=== PATIENT | female | born 1975 | race African-American/Black ===

== ENCOUNTER 2016-11-05 09:23 | Emergency (ER) | payer OTHER ==
[~2016-11-05] VITALS: Ht 160 cm; Wt 84.8 kg
[2016-11-05] MEDS ORDERED: METOPROLOL SUCC50 MG ORAL (09:38)
[2016-11-05] MEDS ORDERED: AMLODIPINE BESY10 MG ORAL (09:38)
[2016-11-05 09:41] VITALS: BP 133/90
[2016-11-05 10:08] LABS: APPEARANCE,URINE SLIGHTLY CLOUDY; KETONES,URINE 1+ (NEGATIVE); LEUKOCYTE ESTERASE ,URINE 1+ (NEGATIVE); NITRITE,URINE NEGATIVE (NEGATIVE); PH,URINE 6 (4.5-8.0); PROTEIN,URINE 2+ (NEGATIVE); UROBILINOGEN,URINE 1 MG/DL (0.0-1.0)
[2016-11-05] MEDS ORDERED: Phenazopyridine 200mg tab ORAL ONE (10:15)
[2016-11-05 10:27] LABS: BACTERIA,URINE FEW /HPF; HYALINE CASTS, URINE 0-2 /LPF; MUCUS,URINE FEW /LPF (NONE/OCC); SQUAMOUS EPITHELIAL CELL,UR MANY /LPF (NONE/OCC)
[2016-11-05] MEDS ORDERED: PHENAZOPYRIDIN200 MG ORAL (10:43)
[2016-11-05] MEDS ORDERED: NITROFURANTOIN100 M2 ORAL (10:43)
[2016-11-05 10:56] VITALS: BP 133/90
--- NOTE | 2016-11-05 10:59 | Emergency Room Report ---
History of Present Illness General Chief Complaint: Female Urogenital Problems Source: Patient Present Illness HPI Patient presents with 2 days of dysuria. 3 months ago she had a UTI and this is what this feels like. She is not taking any medication for this. Just discomfort in the suprapubic area. Denies any fevers chills back pain. No nausea vomiting diarrhea. The patient reports 3/10 pain that's constant and crampy and also she complains of frequency. No hematuria. The previous UTI she took 5 days of antibiotics and never got rechecked. She denies any vaginal discharge. Last period was 2 weeks ago normal for her. Allergies: Coded Allergies: No Known Allergies (Unverified , 11/05/16) Patient History Past Medical History: see triage record Social History: Denies: smoking Social History Narrative [employer] Super[employer] Last Menstrual Period: 10/2016 Nursing Documentation-[facility] Past Medical History: No History, Except For Hx Hypertension: Yes Review of Systems Constitutional: Reports: see HPI Respiratory: Denies: shortness of breath Gastrointestinal: Reports: see HPI Genitourinary: Reports: see HPI Musculoskeletal: Reports: see HPI Skin: Denies: rash Physical Exam Vital Signs Date Time Temp Pulse Resp B/P Pulse Ox O2 Delivery O2 Flow Rate FiO2 11/05/16 09:33 98.8 80 16 133/90 100 Room Air Sp02 EP Interpretation: reviewed, normal General Appearance: well appearing, no apparent distress Head: normocephalic, atraumatic Eyes: bilateral eye PERRL, bilateral eye normal inspection ENT: hearing grossly normal, normal voice, moist mucus membranes Neck: full range of motion, supple Respiratory: no respiratory distress, speaking full sentences Gastrointestinal: normal inspection, normal bowel sounds, non tender, soft, non -distended Genitourinary: no CVA tenderness, deferred Musculoskeletal: no calf tenderness Neurologic: alert, normal gait, grossly normal Psychiatric: mood/affect normal Skin: no rash Medical Decision Making Diagnostic Impression: Primary Impression: Dysuria ER Course The patient presents with symptoms of a UTI. Differential also cleats interstitial cystitis amongst others. Exam is against pyelonephritis. Urinalysis and test will be sent. The patient declines any medication at this time but agrees to take Perdiem. Urinalysis shows some pyuria. Should be treated with Macrobid. The patient is stable for outpatient observation and treatment. Last Vital Signs Date Time Temp Pulse Resp B/P Pulse Ox O2 Delivery O2 Flow Rate FiO2 11/05/16 09:41 98.8 16 133/90 100 Room Air 11/05/16 09:33 80 Disposition: HOME, SELF-CARE Condition: Improved Scripts Phenazopyridine Hcl* (PYRIDIUM*) 200 Mg Tablet 200 MG ORAL THREE TIMES A DAY Y for dysuria, #9 TAB 0 Refills Prov: Trell Easton M.D. 11/05/16 Nitrofurantoin Monohyd/M-Cryst* (MACROBID 100 MG*) 100 Mg Capsule 100 MG ORAL EVERY 12 HOURS, #14 CAP Prov: Trell Easton M.D. 11/05/16 Departure Forms: Return to Work Return to Work in (Days): 1 Return to Work Date: Nov 06, 2016 Patient Instructions: Urinary Tract Infection Additional Instructions: Make sure you follow up with your MD. We will call you if the urine grows an organism not covered by the macrobid. OK to take tylenol or advil. Trell Easton M.D. Nov 05, 2016 10:59
== END 2016-11-05 10:56 | disposition home or self-care (01) ==
LOC: EMR 10:13
DX: R30.0 Dysuria (principal); I10 Essential (primary) hypertension
CPT/HCPCS: 81003; 81025; 99284